=== PATIENT | female | born 1990 | race Caucasian/White ===

== ENCOUNTER → 2020-07-17 | Outpatient (CLI) | payer BC ==
[~2020-07-17] VITALS: Ht 162.6 cm; Wt 83.9 kg
[~2020-07-17] MED LIST: ANTIVERT 25MG T25 MG PO; BENTYL 20MG TAB20 MG PO; COMPAZINE5 MG PO; GLUCOPHAGE500 MG PO; ZITHROMAX200 MG/5 M PO
== END ==
LOC: OPSV 07-09 08:00
DX: L40.50 Arthropathic psoriasis, unspecified (principal)
CPT/HCPCS: 96365; 96375; J1602; J2920

== ENCOUNTER → 2020-10-02 | Outpatient (CLI) | payer BC ==
[~2020-10-02] VITALS: Ht 162.6 cm; Wt 83.0 kg
== END ==
LOC: OPSV 08:30
DX: L40.50 Arthropathic psoriasis, unspecified (principal)
CPT/HCPCS: 96365; 96375; J1602; J2920

== ENCOUNTER → 2020-10-07 | Outpatient (CLI) | payer BC | LOC: EMI 10-02 15:15 | DX: R41.3 Other amnesia (principal); G93.0 Cerebral cysts | CPT/HCPCS: 70551 ==

== ENCOUNTER → 2021-01-06 | Outpatient (CLI) | payer BC ==
[~2021-01-06] VITALS: Ht 162.6 cm; Wt 83.9 kg
== END ==
LOC: OPSV 09:00
DX: L40.50 Arthropathic psoriasis, unspecified (principal)
CPT/HCPCS: 96365; 96375; J1602; J2920

== ENCOUNTER → 2021-03-03 | Outpatient (CLI) | payer BC ==
[~2021-03-03] VITALS: Ht 162.6 cm; Wt 83.9 kg
== END ==
LOC: OPSV 09:00
DX: L40.50 Arthropathic psoriasis, unspecified (principal)
CPT/HCPCS: 96365; 96375; J1602; J2920

== ENCOUNTER → 2021-08-05 | Outpatient (CLI) | payer BC ==
[2021-08-05 13:46] LABS: HEMOGLOBIN 13.7 gm/dl (12.3-15.3); RED BLOOD COUNT 4.63 M/UL (4.00-5.10); WHITE BLOOD COUNT 8.2 K/UL (4.5-11.0)
[2021-08-05 14:35] LABS: BUN/CREATININE RATIO 16 (0-10)
[2021-08-06 07:11] LABS: MAGNESIUM 1.9 mg/dL (1.6-2.3)
[2021-08-06 09:15] LABS: VITAMIN D, 25-HYDROXY 35.5 ng/mL (30.0-100.0)
[2021-08-06 14:15] LABS: PREALBUMIN 26 mg/dL (14-35)
== END ==
LOC: LAB 12:31
PROVIDERS: Physician Assistant
DX: E11.9 Type 2 diabetes mellitus without complications (principal); R63.5 Abnormal weight gain; E55.9 Vitamin D deficiency, unspecified; Z98.84 Bariatric surgery status; R12 Heartburn
CPT/HCPCS: 80053; 80061; 82728; 82746; 83036; 83540; 83735; 83921; 83970; 84100; 84134; 84425; 84443; 84446; 84590; 85027

== ENCOUNTER → 2021-12-14 | Outpatient (CLI) | payer BC | LOC: MRI 07:31 | DX: G93.0 Cerebral cysts (principal) | CPT/HCPCS: 70553; A9577 ==

== ENCOUNTER 2021-12-17 02:30 | Emergency (ER) | payer BC ==
[2021-12-17 03:14] LABS: HEMOGLOBIN 14.6 gm/dl (12.3-15.3); RED BLOOD COUNT 4.76 M/UL (4.00-5.10); WHITE BLOOD COUNT 11.6 K/UL (4.5-11.0)
[2021-12-17 04:42] LABS: BUN/CREATININE RATIO 22 (0-10)
== END 2021-12-17 04:50 | disposition home or self-care (01) ==
LOC: ER1 02:30
PROVIDERS: Emergency Medicine
DX: R55 Syncope and collapse (principal)
CPT/HCPCS: 80053; 83880; 84703; 85025; 93005; 96374; 99284; J1885

== ENCOUNTER → 2021-12-28 | Outpatient (CLI) | payer BC | LOC: EMI 16:27 | DX: M51.17 Intervertebral disc disorders with radiculopathy, lumbosacral region (principal); M48.07 Spinal stenosis, lumbosacral region | CPT/HCPCS: 72148 ==